=== PATIENT | male | born 2000 | race Caucasian/White ===

== ENCOUNTER 2023-05-27 19:41 | Emergency (ER) | payer MEDICAID ==
[~2023-05-27] VITALS: Ht 170.2 cm; Wt 65.8 kg
[2023-05-27] MEDS ORDERED: FLUORESCEIN SODIUM OPHTH 1 EA STRIP ONE (20:08)
[2023-05-27] MEDS ORDERED: FLUORESCEIN SODIUM OPHTH 1 EA STRIP OP ONE (20:30)
[2023-05-27] MEDS ORDERED: CIPR5DRO RIGHTEYE (20:42)
[2023-05-27 20:57] VITALS: BP 120/73; TEMP 98.1; O2SAT 99
== END 2023-05-27 20:58 | disposition home or self-care (01) ==
LOC: ER 20:02
DX: S05.01XA Injury of conjunctiva and corneal abrasion without foreign body, right eye, initial encounter (principal); W22.8XXA Striking against or struck by other objects, initial encounter; Y93.89 Activity, other specified; Y92.89 Other specified places as the place of occurrence of the external cause; Y99.8 Other external cause status